=== PATIENT | male | born 1975 | race Two or more races ===

== ENCOUNTER 2019-12-23 00:31 | Emergency (ER) | payer SELFPAY ==
[~2019-12-23] VITALS: Ht 175.3 cm; Wt 69.4 kg
--- NOTE | 2019-12-23 00:49 | NUR ---
PT [facility] [address] AND [employer] FROM STREETS CRYING AND GRIMACING. PT REFUSING TO ANSWER [facility] AND [facility] QUESTIONS. PT PALCED IN BED 12 ON MONITOR AND PULSE OX. NO ACUTE DISTRESS NOTED. MD AT BEDSIDE FOR EVAL. AWAITING MD ORDERS. WILL CONTINUE TO MONITOR.
--- NOTE | 2019-12-23 00:54 | NUR ---
CRIMINALIST AT BEDSIDE
--- NOTE | 2019-12-23 00:57 | NUR ---
URINE COLLECTED AND SENT TO LAB
[2019-12-23 01:09] LABS: BASOPHILS % (AUTO) 0.5 % (0.0-2.0); EOSINOPHILS % (AUTO) 5.9 % (0.0-6.0); HEMATOCRIT 39 % (39-51); HEMOGLOBIN 12.8 g/dL (13.5-17.5); LYMPHOCYTES % (AUTO) 36.6 % (20.0-44.0); MEAN CORPUSCULAR HGB CONC 33 g/dl (31.0-36.0); MEAN CORPUSCULAR VOLUME 93 fL (80-96); MONOCYTES # (AUTO) 0.4 /CMM (0.1-1.30); MONOCYTES % (AUTO) 7.8 % (2.0-12.0); NEUTROPHILS # (AUTO) 2.7 /CMM (1.8-8.9); NEUTROPHILS % (AUTO) 49.2 % (43.0-81.0); PLATELET COUNT (AUTO) 244 /CMM (150-450); RED BLOOD CELL COUNT(AUTO) 4.18 MIL/uL (4.5-6.0); WHITE BLOOD COUNT (AUTO) 5.4 K/uL (4.3-11.0)
--- NOTE | 2019-12-23 01:10 | NUR ---
PT SENT TO CT
[2019-12-23 01:21] LABS: CALCIUM, SERUM 8.5 mg/dL (8.5-10.1); CARBON DIOXIDE 28 mmol/L (21-32); CHLORIDE 106 mmol/L (98-107); CREATININE 0.6 mg/dL (0.6-1.3); GLUCOSE 85 mg/dL (74-106); POTASSIUM 3.4 mmol/L (3.5-5.1); SERUM AMMONIA 18 umol/L (11-32); SODIUM SERUM 141 mmol/L (136-145); UREA NITROGEN, BLOOD 15 mg/dL (7-18)
--- NOTE | 2019-12-23 01:21 | NUR ---
PT BACK FROM CT
[2019-12-23 01:27] LABS: ALANINE AMINOTRANSFERASE 31 U/L (12-78); ALBUMIN 3.2 g/dL (3.4-5.0); ALCOHOL, BLOOD < 3 mg/dL (0-0); ALKALINE PHOSPHATASE 110 U/L (46-116); ASPARTATE AMINOTRANSFERASE 17 U/L (15-37); BILIRUBIN,DIRECT 0.1 mg/dL (0.0-0.2); BILIRUBIN,TOTAL 0.4 mg/dL (0.2-1.0); TOTAL PROTEIN, SERUM 6.4 g/dL (6.4-8.2)
--- NOTE | 2019-12-23 02:56 | NUR ---
Patient is resting comfortably in bed with eyes closed. Easily aroused. VSS
--- NOTE | 2019-12-23 05:15 | NUR ---
IV removed. Catheter intact and site benign. Pressure and 4x4 applied to site. No bleeding noted.
--- NOTE | 2019-12-23 05:19 | NUR ---
Patient given written and verbal discharge instructions. Patient verbalizes understanding of instructions. Patient is ambulatory with steady gait. Refuses offer of residential placement. Patient given list of available shelters in surrounding area. IV removed. Catheter intact and site benign. Pressure and 4x4 applied to site. No bleeding noted.
[2019-12-23 05:36] VITALS: BP 122/75
== END 2019-12-23 05:36 | disposition home or self-care (01) ==
LOC: ER 00:33
DX: R46.1 Bizarre personal appearance (principal); R40.4 Transient alteration of awareness
CPT/HCPCS: 36415; 70450-TC; 71045-TC; 80048-TC; 80076-TC; 82140-TC; 84443-TC; 85025-TC; G0480